=== PATIENT | female | born 1980 | race American Indian/Alaskan Native ===

== ENCOUNTER 2020-03-24 13:28 | Outpatient (CLI) | payer BC ==
--- NOTE | 2020-03-24 16:56 | Mammography Report ---
DIGITAL SCREENING MAMMOGRAM WITH CAD, 03/24/2020 CLINICAL INFORMATION / INDICATION: Routine screening mammography. SCREENING MAMMO TECHNIQUE: Digital bilateral 2D mammography was obtained in the craniocaudal and mediolateral obliqu e projections. This examination was interpreted with the benefit of Computer-Aided Detection analysis . COMPARISON: None available FINDINGS: Breast Density: The breasts are heterogeneously dense, which may obscure small masses. No dominant mass, suspicious calcifications, or architectural distortion in either breast. IMPRESSION: No mammographic evidence of malignancy. Follow up recommendation: Routine yearly BI-RADS Category 1: Negative. A "normal" or negative report should not discourage follow up or biopsy of a clinically significant f inding. A written summary of these findings will be mailed to the patient. The patient will be entered into a mammography reporting system which will generate a reminder letter for the patient's next appointmen t at the appropriate interval. The [employer] recommends yearly mammograms starting at age 40 and continuing as l janet as a woman is in good health. Breast MRI is recommended for women with an approximate 20-25% or greater lifetime risk of breast cancer, including women with a strong family history of breast or ova kati cancer or who have been treated for Hodgkin's disease. Signer Name: Brandan Lennon MD Signed: 03/24/2020 4:51 PM Workstation Name: [id number]
== END 2020-03-24 13:29 | disposition home or self-care (01) ==
LOC: SPVWC 13:28
PROVIDERS: ATTEND Obstetrics & Gynecology
DX: Z12.31 Encounter for screening mammogram for malignant neoplasm of breast (principal)
CPT/HCPCS: 77067

== ENCOUNTER 2021-03-26 11:59 | Outpatient (CLI) | payer BC ==
--- NOTE | 2021-03-26 16:23 | Mammography Report ---
DIGITAL SCREENING MAMMOGRAM WITH CAD, 03/26/2021 CLINICAL INFORMATION / INDICATION: Routine screening TECHNIQUE: Digital bilateral 2D mammography was obtained in the craniocaudal and mediolateral obliqu e projections. This examination was interpreted with the benefit of Computer-Aided Detection analysis . COMPARISON: 03/24/2020 FINDINGS: Breast Density: The breasts are heterogeneously dense, which may obscure small masses. No dominant mass, suspicious calcifications, or architectural distortion in the left breast. In the inferior aspect of the right breast, mid depth, on MLO view only, somewhat lobular increased d ensity is seen which was not obvious previously. This is not prominently changed on cc view though th ere is a question of mild increased density in the central retroareolar area. IMPRESSION: Question of increasing density on the right Follow up recommendation: Right spot compression views and ultrasound if needed BI-RADS Category 0: INCOMPLETE. Needs additional imaging evaluation and/or prior mammograms for uzma rison. A "normal" or negative report should not discourage follow up or biopsy of a clinically significant f inding. A written summary of these findings will be mailed to the patient. The patient will be entered into a mammography reporting system which will generate a reminder letter for the patient's next appointmen t at the appropriate interval. The [employer] recommends yearly mammograms starting at age 40 and continuing as l janet as a woman is in good health. Breast MRI is recommended for women with an approximate 20-25% or greater lifetime risk of breast cancer, including women with a strong family history of breast or ova kati cancer or who have been treated for Hodgkin's disease. Signer Name: Alexander Jay MD Signed: 03/26/2021 4:19 PM Workstation Name: [id number]
== END 2021-03-26 12:00 | disposition home or self-care (01) ==
LOC: MAMMO 11:59
PROVIDERS: ATTEND Obstetrics & Gynecology
DX: Z12.31 Encounter for screening mammogram for malignant neoplasm of breast (principal)
CPT/HCPCS: 77067